=== PATIENT | male | born 1985 | race Caucasian/White ===

== ENCOUNTER 2025-02-10 19:58 | Emergency (ER) | payer MEDICAID, SELFPAY ==
[2025-02-10 20:07] VITALS: PULSE 77; O2SAT 97
[2025-02-10 20:16] VITALS: BP 141/75; PULSE 83; RESP 16; TEMP 36.8; O2SAT 100; BMI 29.0
--- NOTE | 2025-02-10 20:26 | MHC.EDTECH ---
Patient was changed over in family room with security. Initially refusing to change. After some time, patient changed over with security present. Belongings were put in the [place] closet on shelf 1.
[2025-02-10 20:30] VITALS: BP 134/77; PULSE 80; RESP 14; TEMP 36.8; O2SAT 96
--- NOTE | 2025-02-10 21:23 | ED.GENADULT ---
HPI - General Adult General Chief complaint: ETOH/Substance Use Stated complaint: OD, 4mg narcan given Time Seen by Provider: 02/10/25 20:13 Source: patient, RN notes reviewed and old records reviewed Mode of arrival: EMS Limitations: no limitations History of Present Illness ED Provider: Mariaa BENITEZ narrative: 39-year-old male presents for evaluation after an overdose. Patient was found lying on the ground he was unresponsive and he was given Narcan 8 mg IM from EMS he had immediate affect and woke up. The patient admits to using opiates, he reports that he injects into both of his arms. Denies any concern for infection, denies any fevers, chills. He reports he was not trying to harm himself and this was an accidental overdose he has no other complaints or concerns at this time Related Data Previous Rx's ?Medication ?Instructions ?Recorded cephalexin 500 mg tablet 500 mg PO QID #28 tabs 02/11/25 Allergies Allergy/AdvReac Type Severity Reaction Status Date / Time Sulfa (Sulfonamide Allergy Hives Verified 02/10/25 20:22 Antibiotics) Review of Systems Constitutional: Constitutional: Denies body ache(s), Denies chills, Denies fever(s) and Denies headache(s) Eyes: Eyes: Denies blurry vision ENT: Denies vertigo, Denies dizziness and Denies headache(s) Cardiovascular: Cardiovascular: Denies chest pain and Denies dyspnea Respiratory: Respiratory: Denies cough and Denies dyspnea Gastrointestinal: Gastrointestinal: Denies abdominal pain Integumentary/Breasts: Skin/Breast: Denies erythema and Denies rash Neurologic: Denies vertigo, Denies dizziness and Denies headache(s) Psychiatric: Psychiatric: Denies depression, Denies auditory hallucinations, Denies visual hallucinations, Denies homicidal ideation and Denies suicidal ideation PMF Social History Social History Alcohol intake: former Smoked in Last 30 Days: Yes Use of substances other than those prescribed or required for medical reasons: Yes Substance Use Type: Crack/Cocaine, Heroin and IV Drugs Substance Use Frequency: Daily Last Used Substance: Just Prior to Admission Advance Directives: No Advance Directives Information Provided: Yes Physical Exam ED Vital Signs: Vital Signs - 24 hr 02/12/25 14:49 02/12/25 21:39 Temperature 99.0 F 98.7 F Pulse Rate 61 54 Respiratory Rate 18 16 Blood Pressure 150/91 H 158/82 H Pulse Oximetry 99 98 Oxygen Delivery Method Room Air Room Air BMI result Body Mass Index 29.0 Const General: healthy appearing, comfortable, no acute distress, alert and awake Nutritional Appearance: well nourished Orientation/consciousness: patient oriented x3 HENMT Head: Yes normocephalic and Yes atraumatic Eyes Eyelids: Yes eyelids normal Conjunctivae: conjunctivae normal Sclerae: sclerae normal Corneas: corneas normal Pupils: Equal, round and reactive pupils present EOM: EOMs intact bilaterally Neck Neck: Yes full ROM Resp Effort & Inspection: normal respiratory effort, able to speak in complete sentences and not labored Skin General skin exam: elasticity normal Neuro General: patient oriented x3 Cranial nerves: Yes Equal, round and reactive pupils present and Yes Bilaterally intact EOM present Cognition (Neuro): normal cognition Extrem Other: Moving all extremities well without any obvious deformities Course Reevaluation(s) Reevaluation #1: Patient resting comfortably with no further complaints, vital signs are stable. Time: 23:14 Reevaluation #2: the patient now complaining of swollen, painful legs, on exam he does have mild erythema to the left lower extremity greater than right. The patient injections this area, he appears to have a mild cellulitis. I did order labs, And a dose of cephalexin. he has no leukocytosis or significant left shift. The patient's potassium is slightly low at 3.1 which she will be repleted orally, BUN is slightly elevated, LFTs also slightly elevated to AST of 93 and ALT is 94 respectively. This is likely related to his history of IV drug abuse. the patient would like to discuss with the care team regarding detox options. Time: 00:24 Reevaluation #3: 02/12/2025 DR. Mcgarry's progress note: Recovery team input is appreciated recommended another 40 mg of methadone for today, will continue rehab bed search. Continue with physician observation Time: 08:34 Additional Reevaluation(s): Time: 07:26 Date: 02/13/25 Provider: Arline Bui, DO Patient in physician observation for psychiatric evaluation.? No acute events reported overnight. No current complaints. VS stable.? Patient is in bed search status. Will continue to monitor. Time: 08:38 Date: 02/13/25 Provider: Arline [place], DO Physician observation ended at 838am,\. Patient has been cleared for discharge by the recovery team. Will follow up as an outpatient. Medications Administered Discontinued Medications Generic Name Dose Route Start Last Admin Trade Name Sharon PRN Reason Stop Dose Admin Acetaminophen 650 mg 02/11/25 00:23 02/11/25 00:30 Acetaminophen 325 Mg Tablet PO 02/11/25 00:24 650 mg ONCE ONE Administration Cephalexin HCl 500 mg 02/11/25 00:23 02/11/25 00:30 Cephalexin 500 Mg Capsule PO 02/11/25 00:24 500 mg ONCE ONE Administration Methadone HCl 40 mg 02/11/25 11:58 02/11/25 12:19 Methadone Hcl 20 Mg/2 Ml Oral.Conc PO 02/11/25 11:59 40 mg ONCE ONE Administration Methadone HCl 40 mg 02/12/25 08:33 02/12/25 09:18 Methadone Hcl 20 Mg/2 Ml Oral.Conc PO 02/12/25 08:34 40 mg ONCE ONE Administration Naloxone HCl 8 mg 02/10/25 21:28 02/11/25 18:50 Naloxone Hcl Nasal Take Home 4 Mg [place] NOSTRILALT 02/10/25 21:29 Not Given ONCE ONE Potassium Chloride 40 meq 02/11/25 00:16 02/11/25 00:29 Potassium Chloride Er 20 Meq Tab.Er.Prt PO 02/11/25 00:17 40 meq ONCE ONE Administration Medical Decision Making Medical Decision Making MDM Narrative: 39-year-old male presents for evaluation of an overdose. The patient admits to using opiates. He was not trying to harm himself in any way. Plan for observation. His vitals are currently stable, he was alert and oriented he is well-appearing. No signs of trauma. I do not see any indication for emergent workup at this time. Differential Diagnosis Differential Diagnoses: The differential diagnosis associated with the presentation includes Substance abuse Opiate overdose Polysubstance abuse Heroin abuse Lab Data 02/10/25 23:52 02/10/25 23:52 Labs: Lab Results 02/10/25 02/11/25 Range/Units 23:52 00:42 WBC 8.2 (4.8-10.8) X10*3/uL RBC 3.83 L (4.60-5.80) X10*6/uL Hgb 10.5 L (14.0-18.0) g/dl Hct 31.3 L (42.0-52.0) % MCV 81.7 (80.0-98.0) fL MCH 27.4 (27.0-33.0) pg MCHC 33.5 (31.0-36.0) g/dl RDW 14.8 (11.0-16.0) % Plt Count 300 (160-400) X10*3/uL MPV 9.2 L (9.4-12.4) fL Immature Gran % (Auto) 0.2 (0.0-0.4) % Neut % (Auto) 65.1 (45-73) % Lymph % (Auto) 19.1 L (20-40) % [place] % (Auto) 9.4 (2-11) % Eos % (Auto) 5.5 H (0-4) % Baso % (Auto) 0.7 (0-2) % Lymph # (Auto) 1.6 (1.2-4.9) X10*3/uL [place] # (Auto) 0.8 (0.1-1.2) X10*3/uL Eos # (Auto) 0.5 H (0.0-0.4) X10*3/uL Baso # (Auto) 0.1 (0.0-0.2) X10*3/uL Abs Immat Gran (auto) 0.02 (0.00-0.03) X10*3/uL Absolute Neuts (auto) 5.3 (2.0-8.3) x10*3/uL Absolute Nucleated RBC 0.000 (0.0-0.012) X10*3/uL Nucleated RBC % (auto) 0.0 (0.0-0.2) /100WBC Sodium 142 (135-145) mmol/L Potassium 3.1 L (3.3-5.1) mmol/L Chloride 110 H (96-108) mmol/L Carbon Dioxide 25 (22-29) mmol/L Anion Gap 10 L (12-20) BUN 19 H (9-16) mg/dL Creatinine 0.79 (0.5-1.4) mg/dL Estim Creat Clear Calc 128.7 Estimated GFR > 60 Random Glucose 122 H (60-115) mg/dL Calcium 8.6 (8.4-10.2) mg/dL Total Bilirubin 0.4 (0.0-1.0) mg/dL AST 93 H (5-37) U/L ALT 94 H (0-40) U/L Alkaline Phosphatase 77 (39-117) U/L Total Protein 6.5 (6.5-8.0) g/dL Albumin 3.7 (3.5-5.0) g/dL Salicylates < 5.0 L (15-30) mg/dL Urine Opiates Screen POSITIVE H (Not Detect) Ur Buprenorphine Scrn Not Detected (Not Detect) ng/mL Ur Oxycodone Screen Not Detected (Not Detect) ng/mL Urine Methadone Screen Not Detected (Not Detect) ng/mL Urine Fentanyl Screen POSITIVE H (Not Detect) Acetaminophen < 3 (<30) mcg/mL Ur Barbiturates Screen Not Detected (Not Detect) Ur Phencyclidine Scrn Not Detected (Not Detect) Ur Amphetamines Screen Not Detected (Not Detect) U Benzodiazepines Scrn Not Detected (Not Detect) Urine Cocaine Screen POSITIVE H (Not Detect) U Marijuana (THC) Screen POSITIVE H (Not Detect) Ethyl Alcohol < 10 mg/dL Discharge Plan Discharge Clinical Impression: Accidental overdose, Cellulitis of left leg Patient Disposition: Home, Self-Care Instructions: Cellulitis (ED), Adult Overdose (ED) Additional Instructions: Overdose You were seen in our Emergency Department for an overdose today. You received narcan in order to reverse the effects of overdose. Narcan only lasts about 45 min to 1 hour in the system. You may have been given narcan to take home with you today, please keep it near you if you are going to use again, so others can use it if needed.? The number one risk for fatal overdose is using alone? [employer] is a / hotline where you can be on the phone with someone while you use, and they can call for help if they suspect an overdose: [phone] Things to look out for when you leave include severe vomiting or diarrhea, headaches, muscle cramps, fever, coughing, chest pain, or if you feel so short of breath you cannot walk to the bathroom. Please seek care and return any time for worsening symptoms.? You may have been provided with safer injection?items, please take time to take care of YOU and your health. Use new supplies whenever possible to lessen the chances of infections and other illnesses.? If you need more supplies, please go [facility],? [address] [place] [address] OR you can call or text to coordinate delivery of safer supplies. If you decide you want to stop or cut down on how much you?re using, please call the numbers on the list provided to you or you can come to our outpatient Addiction Treatment office [facility] (M-F 9am-5p) [address] [place] [address], [facility] [address] [place], [place]. [phone] Prescriptions: New cephalexin 500 mg tablet 500 mg PO QID Qty: 28 0RF Print Language: Tristanian
--- NOTE | 2025-02-10 23:28 | ECG_ITS ---
Test Reason : substance abuse Blood Pressure : */* mmHG Vent. Rate : 71 BPM Atrial Rate : 71 BPM P-R Int : 130 ms QRS Dur : 96 ms QT Int : 432 ms P-R-T Axes : 49 28 61 degrees QTcB Int : 469 ms Normal sinus rhythm Possible Left atrial enlargement Left ventricular hypertrophy ( Sokolow-Harrell , Livingston product , Romhilt-Helm ) Nonspecific T wave abnormality Prolonged QT Abnormal ECG No previous ECGs available Referred By: Carlos Leroy Electronically Signed By: BERRY PLASENCIA
[2025-02-10 23:55] LABS: MANUAL DIFF FLAG NO
[2025-02-11 00:02] VITALS: BP 145/67; PULSE 73; RESP 12; TEMP 36.9; O2SAT 94
[2025-02-11 00:14] LABS: Alanine Aminotransferase 94 U/L (0-40); Albumin Level 3.7 g/dL (3.5-5.0); Alkaline Phosphatase 77 U/L (39-117); Anion Gap 10 (12-20); Aspartate Amino Transferase 93 U/L (5-37); Bilirubin Total 0.4 mg/dL (0.0-1.0); Blood Urea Nitrogen 19 mg/dL (9-16); Calcium 8.6 mg/dL (8.4-10.2); Carbon Dioxide 25 mmol/L (22-29); Chloride 110 mmol/L (96-108); Creatinine Clr Calc Pharmacy 128.7; Estimated Glomerular Filt Rate > 60; Ethanol < 10 mg/dL; Glucose Random 122 mg/dL (60-115); Potassium 3.1 mmol/L (3.3-5.1); Sodium 142 mmol/L (135-145); Total Protein 6.5 g/dL (6.5-8.0)
[2025-02-11 00:19] LABS: Basophils Absolute Auto 0.1 X10*3/uL (0.0-0.2); Basophils Percent Auto 0.7 % (0-2); Eosinophils Absolute Auto 0.5 X10*3/uL (0.0-0.4); Eosinophils Percent Auto 5.5 % (0-4); Hematocrit 31.3 % (42.0-52.0); Hemoglobin 10.5 g/dl (14.0-18.0); Imm Gran Abs Auto 0.02 X10*3/uL (0.00-0.03); Imm Gran Pct Auto 0.2 % (0.0-0.4); Lymphocytes Absolute Auto 1.6 X10*3/uL (1.2-4.9); Lymphocytes Percent Auto 19.1 % (20-40); Mean Corpuscular HGB Conc 33.5 g/dl (31.0-36.0); Mean Corpuscular Hemoglobin 27.4 pg (27.0-33.0); Mean Corpuscular Volume 81.7 fL (80.0-98.0); Mean Platelet Volume 9.2 fL (9.4-12.4); Monocytes Absolute Auto 0.8 X10*3/uL (0.1-1.2); Monocytes Percent Auto 9.4 % (2-11); Neutrophils Absolute Auto 5.3 x10*3/uL (2.0-8.3); Neutrophils Percent Auto 65.1 % (45-73); Platelet Count 300 X10*3/uL (160-400); Red Blood Count 3.83 X10*6/uL (4.60-5.80); Red Cell Distribution Width 14.8 % (11.0-16.0); White Blood Count 8.2 X10*3/uL (4.8-10.8)
[2025-02-11] MEDS: Potassium Chloride ER 20 MEQ TAB.ER.PRT 40 MEQ PO (00:29)
[2025-02-11] MEDS: cephALEXin 500 MG CAPSULE PO (00:30)
[2025-02-11] MEDS: Acetaminophen 325 MG TABLET 650 MG PO (00:30)
[2025-02-11 00:35] LABS: Acetaminophen LAB < 3 mcg/mL (<30); Salicylate < 5.0 mg/dL (15-30)
[2025-02-11 01:07] LABS: Amphetamine Screen Urine Not Detected (Not Detect); Barbiturates, Urine Not Detected (Not Detect); Benzodiazepines Screen Urine Not Detected (Not Detect); Buprenorphine Scr Not Detected (Not Detect); Cannabinoid Screen Urine POSITIVE (Not Detect); Cocaine Screen Urine POSITIVE (Not Detect); Methadone Screen, Urine Not Detected (Not Detect); Opiate Screen Urine POSITIVE (Not Detect); Oxycodone Screen Urine Not Detected (Not Detect); Phencyclidine Screen Urine Not Detected (Not Detect)
[2025-02-11 01:37] LABS: Fentanyl, urine POSITIVE (Not Detect)
[2025-02-11 06:00] VITALS: BP 129/82; PULSE 58; RESP 11; TEMP 37.1; O2SAT 98
--- NOTE | 2025-02-11 09:13 | PC.NURSE ---
CARE team at bedside
[2025-02-11 09:32] VITALS: BP 128/77; PULSE 62; RESP 16; O2SAT 98
[2025-02-11 09:33] VITALS: PULSE 62
--- NOTE | 2025-02-11 11:57 | PC.NURSE ---
This RN touched base with Gutierrez from recovery to come and assess and talk with patient so we can come up with a dispo plan
[2025-02-11] MEDS: methADONE HCl 20 MG/2 ML ORAL.CONC 40 MG PO (12:19)
[2025-02-11 15:47] VITALS: BP 149/74; PULSE 61; RESP 16; TEMP 36.8; O2SAT 98
--- NOTE | 2025-02-11 15:57 | PC.NURSE ---
Pt. resting quietly on hospital stretcher, no distress noted, eating snacks. Waiting for insurance auth for detox, plan to be D/C'd tomorrow in AM.
--- NOTE | 2025-02-11 18:38 | PC.NURSE ---
Since patient will be here overnight, charge okay'd transfer to POD. POD RN Odalys made aware, walked over to POD by zelalem Felipe, patient able to walk w/ minor limp to POD.
[2025-02-11 22:02] VITALS: BP 172/90; PULSE 60; RESP 16; TEMP 37.2; O2SAT 97
[2025-02-12 03:46] VITALS: BP 164/87; PULSE 54; RESP 16; TEMP 37.1; O2SAT 97
--- NOTE | 2025-02-12 07:02 | PC.NURSE ---
Assumed care of patient at 0645, patient appears to be sleeping, respirations even and unlabored, no apparent distress. Continue plan of care for detox bedsearch
--- NOTE | 2025-02-12 08:01 | PHA.MEDREC ---
Pharmacy Consult ? Medication Reconciliation Pharmacy has completed the medication reconciliation.
[2025-02-12] MEDS: methADONE HCl 20 MG/2 ML ORAL.CONC 40 MG PO (09:18)
--- NOTE | 2025-02-12 10:45 | MHC.RECOVRN ---
Addendum entered by Gutierrez Alvarado RN 02/12/25 10:59: Pt received 40mg of Methadone yesterday and today- Pt reporting it's not enough . Pt educated on legal limitations on methadone initiation dosing in an ED. Original Note: Met with Rashad for a SUDE after pt unintentionally overdosed on fentanyl. Pt was found unresponsive on a street floor and was resuscitated with Narcan 8mg IM by EMS and brought to the ED. Pt stated he has been using half to one bundle of fentanyl daily via the IV route, as well as smoking a ton of crack and is unable to stop on his own. He is currently homeless and unemployed. He has never been to [facility]S before. He is detox seeking and agreed for referrals to be sent on his behalf. He denied SI/HI (no ideation, no plan, no intent) and denied AH/VH. Referrals were sent yesterday however pt was declined due to his insurance. Pt has [employer] [place] which is not accepted in [place] detox facilities. Question if pt can get a [facility] bed at [facility]. Referrals have been sent to [facility], waiting to hear back. If pt is declined, pt will be given written materials on harm reduction, ATS facilities, homeless shelters, and other local supports, as well as the option to receive a safer injection kit and Narcan at the time of discharge. In addition, this underwriter solicitation director has already sent an OTP referral at [facility] in [facility] so that pt can meat [facility]ler Methadone on Thursday. Pt is advocating for himself to stay tonight as per pt If I leave I'm going to go straight to shooting up fentanyl again and I don't want to . Discussed this with Dr Mcgarry. Pt is aware that he may be discharged today if deemed appropriate.
--- NOTE | 2025-02-12 13:10 | MHC.RECOVRN ---
Addendum entered by Gutierrez Alvarado RN 02/12/25 15:26: Pt was declined by [facility] d/t not accepting his insurance. Since pt does not have [place] ID or other proof of [place] residency he is unable to qualify for a [facility] bed. Pt to discharge when deemed appropriate by the provider. Original Note: 02/11/2025 Met with Rashad for a SUDE after pt unintentionally overdosed on fentanyl. Pt was found unresponsive on a street floor and was resuscitated with Narcan 8mg IM by EMS and brought to the ED. Pt stated he has been using half to one bundle of fentanyl daily via the IV route, as well as smoking a ton of crack and is unable to stop on his own. He is currently homeless and unemployed. He has never been to ATS before. He is detox seeking and agreed for referrals to be sent on his behalf.? He denied SI/HI (no ideation, no plan, no intent) and denied AH/VH.? 02/12/2025 Referrals were sent yesterday however pt was declined due to his insurance. Pt has Medicare [place] which is not accepted in [place] detox facilities. Question if pt can get a [facility] bed at [facility]. Referrals have been sent to [facility], waiting to hear back.? Pt is advocating for himself to stay tonight as per pt If I leave I'm going to go straight to shooting up fentanyl again and I don't want to . Discussed this with Dr Mcgarry. Pt is aware that he may be discharged today if deemed appropriate.? Pt was dosed with 40mg of methadone yesterday and today. Discussed with Rashad possible discharge plan: 1. Referral has been made at [facility] Methadone clinic in [facility] - Pt is able to walk-in tomorrow and be dosed with Methadone in the morning. 2. Encouraged pt to visit the [facility] at [facility] 4th floor during walk in hours: Thursday-Thursday 8:00-16:00 to discuss methadone dosing with prescriber. 3. Discussed the importance of getting [employer] insurance. Pt can apply for [employer] online using a computer at [facility] - brochure with walk-in hours provided.? 4. Once pt has [facility] he is able to seek admission into detox as pt is not considered uninsured due to his Medicare [place] and is most likely not eligible for a [facility] bed.
[2025-02-12 14:49] VITALS: BP 150/91; PULSE 61; RESP 18; TEMP 37.2; O2SAT 99
--- NOTE | 2025-02-12 14:50 | PC.NURSE ---
Patient frequently asking for food, otherwise no apparent distress is noted
[2025-02-12 21:39] VITALS: BP 158/82; PULSE 54; RESP 16; TEMP 37.1; O2SAT 98
--- NOTE | 2025-02-12 22:30 | PC.NURSE ---
late entry, patient appears to remain at rest presently, respirations are even and unlabored, appears in no distress
[2025-02-13 08:47] VITALS: BP 147/90; PULSE 62; RESP 14; TEMP 36.3; O2SAT 100
[2025-02-13 08:58] VITALS: BP 147/90; PULSE 62; RESP 12; TEMP 36.3; O2SAT 100
== END 2025-02-13 08:59 | disposition home or self-care (01) ==
PROVIDERS: Physician Assistant; Emergency Provider Emergency Medicine
DX: T40.2X1A Poisoning by other opioids, accidental (unintentional), initial encounter (principal); R40.4 Transient alteration of awareness; Y92.410 Unspecified street and highway as the place of occurrence of the external cause; F19.10 Other psychoactive substance abuse, uncomplicated; L03.116 Cellulitis of left lower limb; D72.829 Elevated white blood cell count, unspecified
CPT/HCPCS: 36415; 80053; 80143; 80179; 80307; 85025; 93005; 99285; S9485

== ENCOUNTER → 2025-02-10 23:28 | Outpatient (BNV) | payer MEDICAID, SELFPAY | PROVIDERS: Emergency Provider Emergency Medicine Emergency Medical Services; Visit Provider Internal Medicine | DX: I51.7 Cardiomegaly (principal) | CPT/HCPCS: 93010 ==